=== PATIENT | female | born 1995 | race Caucasian/White ===

== ENCOUNTER 2019-11-08 07:33 | Outpatient (CLI) | payer SELFPAY ==
[2019-11-10 02:43] LABS: COVID-19 RT-PCR Result NEGATIVE (Negative)
== END 2019-11-08 07:53 ==
PROVIDERS: Visit Provider Nurse Practitioner Family
DX: Z11.59 Encounter for screening for other viral diseases (principal)
CPT/HCPCS: U0003

== ENCOUNTER 2021-08-23 17:05 | Outpatient (REF) | payer OTHER, SELFPAY ==
[2021-08-23 21:28] LABS: Abs Immature Grans 0.04 10^3/uL (0.0-0.06); Absolute Basophil Count 0.07 10^3/uL (0.0-0.2); Absolute Eosinophil Count 0.12 10^3/uL (0.0-0.7); Absolute Neutrophil Count 6.27 10^3/uL (1.2-6.7); Basophils % 0.7; Eosinophils % 1.2; HCT 41.3 % (36.0-46.0); HGB 13.8 g/dL (11.2-15.7); Immature Grans % 0.4; Lymphocytes % 24.5; MCH 30.8 pg (27.0-33.0); MCHC 33.4 % (32.0-36.0); MCV 92 fL (80-95); MPV 10.4 fL (8.0-11.0); Monocytes % 9.2; Platelet Count 229 10^3/uL (130-400); RBC 4.48 10^6/uL (3.93-5.22); RDW 12.6 % (11.7-14.6); RDW-SD 42.5 fL
[2021-08-23 21:53] LABS: ALT 35 U/L (14-59); AST 14 U/L (15-37); Albumin 3.7 g/dL (3.4-5.0); Alkaline Phosphatase 48 U/L (46-116); Anion Gap 8.3 mmol/L (3-11); BUN 13 mg/dL (7-18); Bilirubin, Total 0.4 mg/dL (0.2-1.0); CO2 25.7 mmol/L (21.0-32.0); CREATININE 0.9 mg/dL (0.55-1.02); Calcium 8.8 mg/dL (8.5-10.1); Chloride 105 mmol/L (98-107); Glucose 92 mg/dL (74-106); Magnesium 2.1 mg/dL (1.8-2.4); Potassium 3.9 mmol/L (3.5-5.1); Sodium 139 mmol/L (136-145); TSH (W/Ref FT4) 0.97 uIU/mL (0.36-3.74); Total Protein 6.5 g/dL (6.4-8.2)
== END 2021-08-23 17:06 | disposition home or self-care (01) ==
LOC: LBN 17:05
PROVIDERS: Visit Provider Family Medicine
DX: R42 Dizziness and giddiness (principal)
CPT/HCPCS: 80053; 83735; 84443; 85025

== ENCOUNTER 2023-04-06 15:38 | Outpatient (REF) | payer BC, SELFPAY ==
--- NOTE | 2023-04-06 14:20 | PAPFT_PTH ---
PATIENT: Jo Gordon LOC: [facility] U#:[id number] AGE/SX: 27/F ROOM: RE04/06/[address]: Ngoc Keene MD : 1995 BED: DIS: 04/06/2023 SPEC #: [id number] RECD: 04/06/23 17:33 STATUS: HECTOR REQ #: [id number] SWETA: 04/06/23 14:[address]: Ngoc Keene DEPT: [facility] Cytology RECD BY: Lenka Alvarado ENTERED: 04/06/23 17:33 SP TYPE: PAPFT TAYLER DR: Unknown,Unknown Tissues: 1 - CX/ENDOCX FOR PAP SMEARS Procedures: PAP THIN PREP/[facility] Screening HPV DNA PROBE Comments: [id number]
== END 2023-04-06 15:39 | disposition home or self-care (01) ==
LOC: LBN 15:38
PROVIDERS: Visit Provider Obstetrics & Gynecology
DX: Z12.4 Encounter for screening for malignant neoplasm of cervix (principal); Z11.51 Encounter for screening for human papillomavirus (HPV); R87.612 Low grade squamous intraepithelial lesion on cytologic smear of cervix (LGSIL)
CPT/HCPCS: 88142; 87624

== ENCOUNTER 2023-06-08 16:17 | Outpatient (REF) | payer BC, SELFPAY ==
--- NOTE | 2023-06-08 15:59 | ENDO_PTH ---
PATIENT: Jo Gordon LOC: [facility] U#:[id number] AGE/SX: 27/F ROOM: RE06/08/[address]: Ngoc Keene MD : 1995 BED: DIS: 06/08/2023 SPEC #: [id number] RECD: 06/08/23 17:34 STATUS: HECTOR REQ #: [id number] SWETA: 06/08/23 15:[address]: Ngoc Keene DEPT: Surgical Specimen RECD BY: Lenka Alvarado ENTERED: 06/08/23 17:34 SP TYPE: Endo OTHR DR: None Tissues: 1 - ENDOCERVICAL BX/CURRETTE Procedures: GROSS AND MICRO LEVEL 4 Comments: [id number]
== END 2023-06-08 16:18 | disposition home or self-care (01) ==
LOC: LBN 16:17
PROVIDERS: Visit Provider Obstetrics & Gynecology
DX: N88.8 Other specified noninflammatory disorders of cervix uteri (principal); R87.612 Low grade squamous intraepithelial lesion on cytologic smear of cervix (LGSIL)
CPT/HCPCS: 88305

== ENCOUNTER 2023-07-19 22:29 | Emergency (ER) | payer BC, SELFPAY ==
[2023-07-19 22:34] VITALS: BP 110/78; PULSE 99; RESP 20; TEMP 36.4; O2SAT 100
--- NOTE | 2023-07-19 22:41 | W.ED.GENAD ---
Discharge Plan Disposition Patient Disposition: Home Condition: Stable Discharge Details Clinical Impression: Nausea & vomiting, Abdominal pain, epigastric Primary Care Provider: Unknown,Unknown ED Provider: Adalid Canales Home Meds and New Rx's Prescriptions: New ondansetron 4 mg tablet,disintegrating 4 mg PO Q6H PRN (Reason: nausea and vomiting) Qty: 20 0RF No Action cholecalciferol (vitamin D3) 50 mcg (2,000 unit) capsule 50 mcg PO DAILY PNV #[id number] acid-omega3 30 mg iron-10 mg iron-1 mg capsule 1 cap PO DAILY propranolol 10 mg tablet 10 mg PO PRN Discharge Instructions Instructions: Acute Nausea and Vomiting (ED) Additional Instructions: Take Zofran as needed for nausea. You have been provided a few pills to go home with from the emergency department. 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 Advance diet slowly with clear liquids. Return with severe pain, fever, not tolerating anything by mouth. HPI General Date/Time Provider Initiated Documentation: 07/19/23 22:37. Limitations to Documentation: no limitations. Information obtained by: patient. HPI Narrative: 28-year-old female without significant past medical history presents for evaluation of acute onset vomiting. Reports that symptoms started about an hour ago. She has had multiple episodes of vomiting. Has some discomfort in the epigastric area. Worse with vomiting. No diarrhea. No fever. No known sick contacts. Reports that she accidentally had a lot of salt on her dinner when the saltshaker broke. No known food allergies. Unlikely foodborne illness as no one else is sick. Related Data Home Medications Medication Instructions Recorded Confirmed cholecalciferol (vitamin D3) 50 50 mcg PO DAILY 04/06/23 07/19/23 mcg (2,000 unit) capsule vitamin#30 30 mg iron-10 1 cap PO DAILY 04/06/23 07/19/23 mg iron-folic acid 1 mg-omg3 capsule propranolol 10 mg tablet 10 mg PO PRN 06/08/23 07/19/23 ondansetron 4 mg disintegrating 4 mg PO Q6H PRN nausea and 07/20/23 tablet vomiting #20 tabs Previous Rx's Medication Instructions Recorded ondansetron 4 mg disintegrating 4 mg PO Q6H PRN nausea and 04/04/24 tablet vomiting #20 tabs Allergies Allergy/AdvReac Type Severity Reaction Status Date / Time No Known Allergies Allergy Verified 07/19/23 23:57 General Stated Complaint: Nausea/Vomit/Diar GEOVANY: 3 Exam Narrative Exam Narrative: Review of Systems: All systems reviewed & are unremarkable except as noted in HPI and below Well-developed, actively vomiting NCAT PERRL, normal conjunctiva RRR, no murmur Unlabored respiratory effort, clear bilaterally Nondistended abdomen , no tenderness, guarding or rebound Extremities w/o deformity, no cyanosis, no edema No rashes or lesions. no focal neurologic deficits Appropriate mood and affect Course Vital Signs Vital signs: Vital Signs Temperature 36.4 C L 07/19/23 22:34 Pulse 99 H 07/19/23 22:34 Respiratory Rate 20 07/19/23 22:34 Blood Pressure 110/78 07/19/23 22:34 Pulse Oximetry 100 07/19/23 22:34 Temperature 36.4 C L 07/19/23 22:34 Pulse 99 H 07/19/23 22:34 Respiratory Rate 20 07/19/23 22:34 Respiratory Effort Normal 07/19/23 22:36 Blood Pressure 110/78 07/19/23 22:34 Pulse Oximetry 100 07/19/23 22:34 Oxygen Delivery Method Room Air 07/19/23 22:34 Oxygen Flow Rate 0 07/19/23 22:34 Pain Level 4 07/19/23 22:34 Medical Decision Making Emergent evaluation of vomiting. Initial differential includes viral illness, foodborne illness, pancreatitis, cholelithiasis less likely given lack of right upper quadrant tenderness. Low suspicion for an acute intra-abdominal process given a benign and reassuring abdominal exam. Plan for fluid resuscitation, will check lab work to further evaluate electrolyte derangement or other etiologies of symptoms. Will give Zofran. Will reassess. Lab work reviewed. Mild leukocytosis. Creatinine normal. No significant electrolyte derangement. Mild elevation of anion gap. IV fluids given. Lipase normal. Patient is not . Resuscitated with IV fluids and antiemetics were given. This improved symptoms greatly. She was able to tolerate p.o. She was discharged with a take-home bottle of Zofran and a prescription has been sent to her pharmacy as well. Return precautions advised. Discharged in good condition. Medical Records Medical records reviewed: Yes I reviewed the patient's medical records. Lab Data Lab results reviewed: Yes I reviewed the patient's lab results. Quality:SDOH Health Related Social Needs: No Data to Display PFSH All Active Problems (Updated 07/20/23 @ 00:42 by Adalid Canales MD) Abdominal pain, epigastric (Acute) Nausea & vomiting (Acute) Abnormal Pap smear of cervix (Acute) 04/2023: LSIL - cannot r/o HSIL, HPV negative [place]: Neck mass (Acute) Depression (Chronic) Medical History Pelvic pain intermittent Social History Smoking/Tobacco Use Status: Former Tobacco Use Second Hand Exposure: No Smoking risk assessment performed?: Yes Alcohol Intake: current Alcohol Intake frequency: other Drug use: Never Substance use type: does not use Adopted: No Household members: spouse Number of Children: 0 Current gender identity: female What is your relationship status?: Panel score (0-1 are the most socially isolated patients): 1 Seatbelt use: always Do you feel safe at home: Yes Female Reproductive History Menstrual control method: progestin IUCD History History 0 Para Hx # Term Pregnancies Multiple births Hx # Pregnancies Ectopic pregnancies AB induced Hx Number of Living Children AB spontaneous
[2023-07-19] MEDS: Normal Saline 1,000 ML 1000 ML IV (23:13)
[2023-07-19] MEDS: Ondansetron 4 MG/2 ML VIAL IVP (23:14)
[2023-07-19 23:20] LABS: Abs Immature Grans 0.07 10^3/uL (0.0-0.06); Absolute Basophil Count 0.06 10^3/uL (0.0-0.2); Absolute Eosinophil Count 0.07 10^3/uL (0.0-0.7); Absolute Monocyte Count 0.72 10^3/uL (0.1-0.8); Basophils % 0.4; Eosinophils % 0.5; HGB 16.4 g/dL (11.2-15.7); Immature Grans % 0.5; Lymphocytes % 13.3; MCH 31.2 pg (27.0-33.0); MCHC 34.9 % (32.0-36.0); MCV 89 fL (80-95); MPV 9.9 fL (8.0-11.0); Neutrophils % 80.3; Platelet Count 247 10^3/uL (130-400); RBC 5.26 10^6/uL (3.93-5.22); RDW 12.5 % (11.7-14.6); RDW-SD 41.1 fL; WBC 14.32 10^3/uL (4.4-10.8)
[2023-07-19 23:24] VITALS: PULSE 75
[2023-07-19 23:30] VITALS: PULSE 83
[2023-07-19 23:44] LABS: ALT 30 U/L (14-59); AST 19 U/L (15-37); Albumin 4.7 g/dL (3.4-5.0); Alkaline Phosphatase 57 U/L (46-116); Anion Gap 13.8 mmol/L (3-11); BUN 26 mg/dL (7-18); CO2 24.2 mmol/L (21.0-32.0); Calcium 9.9 mg/dL (8.5-10.1); Chloride 102 mmol/L (98-107); Glucose 118 mg/dL (74-106); Lipase 67 U/L (16-77); Magnesium 2.2 mg/dL (1.8-2.4); Potassium 3.8 mmol/L (3.5-5.1); Sodium 140 mmol/L (136-145); Total Protein 8.4 g/dL (6.4-8.2)
[2023-07-19 23:45] VITALS: BP 96/59; PULSE 80
[2023-07-19] MEDS: diphenhydrAMINE 50 MG/ML VIAL 12.5 MG IVP (23:59)
[2023-07-20] MEDS: Prochlorperazine 10 MG/2 ML VIAL IVP
[2023-07-20 00:08] LABS: HCG Quant, Pregnancy 1 mIU/mL (1-3)
[2023-07-20 00:47] VITALS: BP 92/66; PULSE 82; RESP 18; O2SAT 99
--- NOTE | 2023-07-20 00:48 | NUR.NOTE ---
PT was given 8oz water. PT drank water and is feeling better. no nausea/vomiting Nursing Note:
== END 2023-07-20 00:56 | disposition home or self-care (01) ==
PROVIDERS: Emergency Provider Emergency Medicine
DX: R10.13 Epigastric pain (principal); R11.2 Nausea with vomiting, unspecified; Z87.891 Personal history of nicotine dependence
CPT/HCPCS: 80053; 83690; 96361; 96374; 96375; 99284; 83735; 84702; 85025; J0780; J1200; J2405

== ENCOUNTER 2024-04-02 13:08 | Outpatient (REF) | payer BC, SELFPAY ==
--- NOTE | 2024-04-02 14:30 | PAPFT_PTH ---
PATIENT: Jo Gordon LOC: [facility] U#:[id number] AGE/SX: 28/F ROOM: RE04/02/[address]: Leanna Freeman : 1995 BED: DIS: 04/02/2024 SPEC #: [id number] RECD: 04/02/24 17:37 STATUS: HECTOR REQ #: [id number] SWETA: 04/02/24 14:[address]: Leanna Freeman DEPT: [facility] Cytology RECD BY: Lenka Alvraado ENTERED: 04/02/24 17:37 SP TYPE: PAPFT OTHR DR: Unknown,Unknown Tissues: 1 - CX/ENDOCX FOR PAP SMEARS Procedures: PAP THIN PREP/[facility] Screening Comments: [id number]
[2024-04-02 14:48] LABS: Panorama Kit Sent via Fed Ex
[2024-04-02 14:55] LABS: Abs Immature Grans 0.07 10^3/uL (0.0-0.06); Absolute Basophil Count 0.05 10^3/uL (0.0-0.2); Absolute Eosinophil Count 0.09 10^3/uL (0.0-0.7); Absolute Lymphocyte Count 2.05 10^3/uL (1.2-3.4); Absolute Monocyte Count 0.84 10^3/uL (0.1-0.8); Absolute Neutrophil Count 9.42 10^3/uL (1.2-6.7); Basophils % 0.4 %; Eosinophils % 0.7 %; HCT 38.7 % (36.0-46.0); HGB 13.3 g/dL (11.2-15.7); Immature Grans % 0.6 %; Lymphocytes % 16.4 %; MCH 30.6 pg (27.0-33.0); MCHC 34.4 % (32.0-36.0); MCV 89 fL (80-95); MPV 9.9 fL (8.0-11.0); Monocytes % 6.7 %; Neutrophils % 75.2 %; Platelet Count 210 10^3/uL (130-400); RBC 4.35 10^6/uL (3.93-5.22); RDW 12.9 % (11.7-14.6); RDW-SD 42.3 fL; WBC 12.53 10^3/uL (4.4-10.8)
[2024-04-02 15:03] LABS: Glucose,1 Hr (Glucola) 137 mg/dL (80-140)
[2024-04-02 23:16] LABS: Hepatitis B Surface Ag Negative (Negative)
[2024-04-02 23:44] LABS: Hepatitis C Ab w Rflx HCV PCR Negative (Negative)
[2024-04-02 23:49] LABS: HIV-1/2 Ag & Ab Screen Negative (Negative)
[2024-04-03 10:27] LABS: Varicella IgG Antibody Positive (See Note)
[2024-04-04 12:51] LABS: Chlamydia Result Negative (Negative); GC Result Negative (Negative)
[2024-04-04 21:05] LABS: Syphilis IgG w/Reflex Nonreactive (Nonreactive)
[2024-04-06 11:04] LABS: Specimen WB Whole Blood
[2024-04-12 14:33] LABS: Result Summary NEGATIVE; Specimen WB Whole Blood
== END 2024-04-02 13:09 | disposition home or self-care (01) ==
LOC: LBN 13:08
PROVIDERS: Visit Provider Advanced Practice Midwife
DX: Z34.91 Encounter for supervision of normal pregnancy, unspecified, first trimester (principal)
CPT/HCPCS: 36415; 81220; 81222; 81329; 82950; 86787; 86803; 86850; 86900; 86901; 87340; 87389; 87491; 87591; 88142; 85025; 86780; 87086; 87480; 87510; 87660

== ENCOUNTER 2024-05-14 03:08 | Outpatient (CLI) | payer BC, SELFPAY ==
[2024-05-14 09:40] LABS: Glucose 1 Hour 147 mg/dL
[2024-05-14 11:26] LABS: Glucose 3 Hour 104 mg/dL
[2024-05-15 10:30] LABS: Rubella IgG Ab (UVM) Positive (See Note)
== END 2024-05-14 03:09 | disposition home or self-care (01) ==
LOC: LBO 03:09
PROVIDERS: Advanced Practice Midwife; Obstetrics & Gynecology; Visit Provider Advanced Practice Midwife
DX: R73.09 Other abnormal glucose; Z34.91 Encounter for supervision of normal pregnancy, unspecified, first trimester
CPT/HCPCS: 36415; 82951; 86762

== ENCOUNTER 2024-07-22 11:53 | Outpatient (CLI) | payer BC, SELFPAY ==
[2024-07-22 12:39] LABS: Glucose,1 Hr (Glucola) 122 mg/dL (80-140)
[2024-07-22 12:40] LABS: Abs Immature Grans 0.14 10^3/uL (0.0-0.06); Absolute Basophil Count 0.04 10^3/uL (0.0-0.2); Absolute Eosinophil Count 0.12 10^3/uL (0.0-0.7); Absolute Lymphocyte Count 1.93 10^3/uL (1.2-3.4); Absolute Monocyte Count 0.85 10^3/uL (0.1-0.8); Basophils % 0.3 %; Eosinophils % 0.9 %; HCT 35.4 % (36.0-46.0); HGB 11.7 g/dL (11.2-15.7); Immature Grans % 1.1 %; MCH 31.5 pg (27.0-33.0); MCHC 33.1 % (32.0-36.0); MCV 95 fL (80-95); MPV 9.8 fL (8.0-11.0); Monocytes % 6.6 %; Neutrophils % 76.1 %; Platelet Count 182 10^3/uL (130-400); RBC 3.71 10^6/uL (3.93-5.22); RDW 14.4 % (11.7-14.6); RDW-SD 49.9 fL; WBC 12.85 10^3/uL (4.4-10.8)
[2024-07-22 12:41] LABS: Absolute Neutrophil Count 9.78 10^3/uL (1.2-6.7)
== END 2024-07-22 11:54 | disposition home or self-care (01) ==
LOC: LBO 11:53
PROVIDERS: Visit Provider Obstetrics & Gynecology
DX: Z34.92 Encounter for supervision of normal pregnancy, unspecified, second trimester (principal)
CPT/HCPCS: 36415; 82950; 85025